=== PATIENT | female | born 1950 | race Caucasian/White ===

== ENCOUNTER 2017-02-25 19:48 | Observation (INO) ==
--- NOTE | 2017-02-25 19:58 | Emergency Department Note ---
Disposition Clinical Impression: Near syncope, Chest pain Disposition: Admitted As Inpatient Condition: Good Referrals: NONE,PCP [Non-Partnered Physician] - Forms: ED Satisfaction Letter Time of Disposition: 23:06 General Adult HPI - General Chief complaint: ED Syncope Stated complaint: Syncopal Episode Time Seen by Provider: 02/25/17 19:49 Nursing Notes Reviewed: Yes Vital Signs Reviewed: Yes - History of Present Illness HPI Narrative: Patient is a bleeding at the [facility] and had a near syncopal episode. She states that she had been sitting for long periods have her back started to hurt she got up to walk around. She did have associated diaphoresis with this. She denies any chest pain or shortness of breath. SHe denies any change in her vision or headaches. All systems ED: reviewed and negative except as stated. Constitutional: Denies: fever, chills ENT ED: Reports: other (Left jaw pain) Cardiovascular: Reports: other (Near-syncope). Denies: chest pain, syncope Respiratory: Denies: cough, dyspnea Gastrointestinal: Denies: abdominal pain, nausea, vomiting, diarrhea, hematemesis, melena, hematochezia Genitourinary: Denies: urgency, dysuria, frequency, hematuria Musculoskeletal: Denies: back pain, neck pain Integumentary: Denies: rash, abrasion Neurological: Denies: headache, weakness, numbness, paresthesias, abnormal gait Past Medical History - Past Medical History Attestation: Yes The following information was validated with the patient. Source: patient Physical Exam - General Limitations: no limitations General appearance: alert, in no apparent distress - Head Head exam: atraumatic, normocephalic, normal inspection - Eye Eye exam: Present: normal appearance, PERRL, EOMI. Absent: scleral icterus - ENT ENT exam: normal exam, normal oropharynx, mucous membranes moist - Neck Neck exam: Present: normal inspection, full ROM, trachea midline. Absent: tenderness - Chest Chest inspection: Present: normal inspection, symmetric chest wall rise. Absent : tenderness - Respiratory Respiratory exam: Present: normal lung sounds bilaterally. Absent: respiratory distress - Cardiovascular Cardiovascular exam: Present: regular rate, normal rhythm, normal heart sounds - Abdominal Exam Abdominal exam: Present: soft, Non-Tender, normal bowel sounds. Absent: tenderness, distention, guarding, rebound, rigidity, diminished bowel sounds, organomegaly - Extremities Exam Extremities exam: Present: normal inspection, full ROM, normal capillary refill. Absent: tenderness, pedal edema - Back Exam Back exam: Present: normal inspection, full ROM. Absent: tenderness - Neurological Exam Neurological exam: Present: alert, oriented X3 - Psychiatric Psychiatric exam: Present: normal affect, normal mood - Skin Skin exam: Present: warm, dry, intact, normal color. Absent: rash, cyanosis Course Course Narrative: Female patient presents emergency department complaining of a near syncopal event while she was ambulating to the [facility]. He states that she had been sitting down for extended period time and started having her back ache. She then got up and started walking around. After ambulating for a few minutes she got lightheaded and felt like she is going to pass out. She denies any change in her vision. She was able to sit down prior to the syncopal episode. She states that she got very clammy and had some left-sided jaw pain. She denies any chest pain or shortness of breath. She states that she has been eating appropriately today and states she had a BLT as well as a hotdog and romanian fries. Patient states that she became nauseated and had some episodes of diarrhea around the time of the event as well. Currently the patient is mentating appropriately. She is alert and oriented. Pupils are equal and reactive and she does not appear to be in any distress. We will scan patient's head get EKG and basic lab workup on patient. She is agreeable to this at this time. She does not appear to be in any distress currently while she is resting comfortably in bed. - Reevaluation(s) Reevaluation #1: We will admit patient to the hospital for her near syncope. She does have a hyperkalemia that we are treating with insulin and glucose. We will provide the patient with aspirin and morphine for her chest pain she is now having. She states this is to the left side of her chest. Patient does have an elevated d-dimer. However her kidney function is poor. We will admit patient for a VQ scan tomorrow. Vital Signs Temperature 97.8 F 02/25/17 19:49 Pulse Rate 61 02/25/17 19:49 Respiratory Rate 20 02/25/17 19:49 Blood Pressure 153/63 02/25/17 19:49 O2 Sat by Pulse Oximetry 97 02/25/17 19:49 Temperature 97.8 F 02/25/17 19:49 Pulse Rate 61 02/25/17 19:49 Respiratory Rate 20 02/25/17 19:49 Blood Pressure 153/63 02/25/17 19:49 O2 Sat by Pulse Oximetry 97 02/25/17 19:49 Oxygen Delivery Oxygen Delivery Room Air Medical Decision Making - Medical Records Medical records reviewed: Yes I reviewed the patient's medical records. - Lab Data Lab results reviewed: Yes I reviewed the patient's lab results. Result diagrams: 02/25/17 20:38 02/25/17 20:38 Lab Results 02/25/17 02/25/17 02/25/17 Range/Units 20:38 20:38 20:38 WBC 7.7 (4.3-11.1) K/mcL RBC 3.71 L (3.82-4.97) M/mcL Hgb 11.1 L (11.5-15.4) g/dL Hct 35.0 L (35.3-44.9) % MCV 94.3 (83.0-100.0) fL MCH 29.9 (28.0-33.3) pg MCHC 31.7 (31.6-35.5) g/dL RDW 13.8 (11.5-14.5) % Plt Count 209 (140-400) K/mcL MPV 10.2 (9.4-12.4) fL Immature Gran % 0.1 (0-4) % Seg Neutrophils % 76.9 % Lymphocytes % 13.3 % Monocytes % 7.2 % Eosinophils % 2.2 % Basophils % 0.3 % Neutrophils # 5.9 (1.6-8.9) K/mcL Lymphocytes # 1.0 (0.6-4.6) K/mcL Monocytes # 0.6 (0.0-1.3) K/mcL Eosinophils # 0.2 (0.0-0.6) K/mcL Basophils # 0.0 (0.0-0.2) K/mcL PT 12.9 H (9.4-12.1) Seconds INR 1.2 APTT 27.8 (26.0-36.0) Seconds D-Dimer 781 H (0-500) ng/mLFEU Sodium 139 (136-145) mEq/L Potassium 5.9 H (3.5-4.5) mEq/L Chloride 110 H (98-109) mEq/L Carbon Dioxide 22 (19-29) mEq/L BUN 40 H (7-20) mg/dL Creatinine 1.53 H (0.57-1.11) mg/dL Est GFR ( Amer) 41 L (> 60) Est GFR (Non-Af Amer) 34 L (> 60) BUN/Creatinine Ratio 26 (6-26) Glucose 195 H (70-99) mg/dL Calculated Osmolality 303 H (280-300) Lactic Acid (0.5-2.2) mmol/L Calcium 9.1 (8.6-10.8) mg/dL Total Bilirubin 0.3 (0.2-1.2) mg/dL AST 20 (5-34) Units/L ALT 16 (0-55) Units/L Alkaline Phosphatase 60 (38-126) Units/L Troponin I (0-0.03) ng/mL Serum Total Protein 6.9 (6.0-8.3) g/dL Albumin 3.3 L (3.5-5.0) g/dL Globulin 3.6 H (2.4-3.5) g/dL Albumin/Globulin Ratio 0.9 L (1.1-2.2) Urine Color (Yellow) Urine Clarity (Clear) Urine pH (5.0-8.0) pH Units Ur Specific [place] (1.010-1.025) Urine Protein (Neg-Trace) mg/dL Urine Glucose (UA) (Normal) mg/dL Urine Ketones (Negative) mg/dL Urine Blood (Negative) Urine Nitrite (Negative) Urine Bilirubin (Negative) Urine Urobilinogen (Normal) mg/dL Ur Leukocyte Esterase (Negative) Urine Microscopic RBC (0-3) per hpf Urine Microscopic WBC (0-3) per hpf Ur Squamous Epith Cells (None-Few) per lpf Urine Bacteria (None-Few) per hpf Hyaline Casts (None-Few) per lpf Ur Culture Indicated? (NO) 02/25/17 02/25/17 02/25/17 Range/Units 20:38 20:38 21:10 WBC (4.3-11.1) K/mcL RBC (3.82-4.97) M/mcL Hgb (11.5-15.4) g/dL Hct (35.3-44.9) % MCV (83.0-100.0) fL MCH (28.0-33.3) pg MCHC (31.6-35.5) g/dL RDW (11.5-14.5) % Plt Count (140-400) K/mcL MPV (9.4-12.4) fL Immature Gran % (0-4) % Seg Neutrophils % % Lymphocytes % % Monocytes % % Eosinophils % % Basophils % % Neutrophils # (1.6-8.9) K/mcL Lymphocytes # (0.6-4.6) K/mcL Monocytes # (0.0-1.3) K/mcL Eosinophils # (0.0-0.6) K/mcL Basophils # (0.0-0.2) K/mcL PT (9.4-12.1) Seconds INR APTT (26.0-36.0) Seconds D-Dimer (0-500) ng/mLFEU Sodium (136-145) mEq/L Potassium (3.5-4.5) mEq/L Chloride (98-109) mEq/L Carbon Dioxide (19-29) mEq/L BUN (7-20) mg/dL Creatinine (0.57-1.11) mg/dL Est GFR ( Amer) (> 60) Est GFR (Non-Af Amer) (> 60) BUN/Creatinine Ratio (6-26) Glucose (70-99) mg/dL Calculated Osmolality (280-300) Lactic Acid 0.7 (0.5-2.2) mmol/L Calcium (8.6-10.8) mg/dL Total Bilirubin (0.2-1.2) mg/dL AST (5-34) Units/L ALT (0-55) Units/L Alkaline Phosphatase (38-126) Units/L Troponin I 0.00 (0-0.03) ng/mL Serum Total Protein (6.0-8.3) g/dL Albumin (3.5-5.0) g/dL Globulin (2.4-3.5) g/dL Albumin/Globulin Ratio (1.1-2.2) Urine Color Yellow (Yellow) Urine Clarity Cloudy A (Clear) Urine pH 5.5 (5.0-8.0) pH Units Ur Specific [place] 1.026 H (1.010-1.025) Urine Protein 30 H (Neg-Trace) mg/dL Urine Glucose (UA) Normal (Normal) mg/dL Urine Ketones Trace H (Negative) mg/dL Urine Blood Negative (Negative) Urine Nitrite Negative (Negative) Urine Bilirubin Moderate H (Negative) Urine Urobilinogen Normal (Normal) mg/dL Ur Leukocyte Esterase Trace H (Negative) Urine Microscopic RBC 3-5 H (0-3) per hpf Urine Microscopic WBC 0-3 (0-3) per hpf Ur Squamous Epith Cells Many H (None-Few) per lpf Urine Bacteria None Seen (None-Few) per hpf Hyaline Casts Few (None-Few) per lpf Ur Culture Indicated? YES A (NO) - Radiology Data Radiology results reviewed: Yes I reviewed the patient's radiology results. Chest X-Ray 02/25/17 19:49 IMPRESSION: No acute cardiopulmonary process. D/ / Bud Heath MD / Bud Heath MD Interpreting Provider: Bud Heath MD Head CT 02/25/17 19:50 IMPRESSION: No acute intracranial abnormality. D/ / Ck Bradford MD / Ck Bradford MD Interpreting Provider: Ck Bradford MD - EKG Data EKG #1 EKG attestation: Yes I reviewed and interpreted this EKG. EKG results narrative: Normal sinus rhythm at a rate of 62. SC interval is 189. QRS duration is 86. QT is 400. QTC is 405. No signs of acute ischemia. No previous EKG to compare to. Attestation Statement - Attestation Attestation: I examined this patient and my medical decision-making was reviewed with the Resident Physician. I agree with the documented findings, disposition and treatment plan as described except to the extent set forth below. 66-year-old female with concern for near syncope. She does have a history of taking an GRACIE inhibitor. She has findings today of acute kidney injury as well as hyperkalemia. We did investigate possible causes including pulmonary embolism. She cannot have contrast as she has a KI. Plan to hydrate, admitted for possible VQ scan. He dimer is pending. Additionally we will obtain EKG and basic laboratory analyses. Plan to admit to hospital for further evaluation of syncope.
[2017-02-25 20:46] LABS: Basophils % 0.3 %; Eosinophils # 0.2 K/mcL (0.0-0.6); Eosinophils % 2.2 %; Hemoglobin 11.1 g/dL (11.5-15.4); Immature Granulocytes % 0.1 % (0-4); Lymphocytes % 13.3 %; Mean Corpuscular HGB Conc 31.7 g/dL (31.6-35.5); Mean Corpuscular Hemoglobin 29.9 pg (28.0-33.3); Mean Corpuscular Volume 94.3 fL (83.0-100.0); Mean Platelet Volume 10.2 fL (9.4-12.4); Monocytes # 0.6 K/mcL (0.0-1.3); Monocytes % 7.2 %; Neutrophils # 5.9 K/mcL (1.6-8.9); Platelet Count 209 K/mcL (140-400); Red Blood Count 3.71 M/mcL (3.82-4.97); Red Cell Distribution Width 13.8 % (11.5-14.5); Segmented Neutrophils % 76.9 %
[2017-02-25 20:51] LABS: INR 1.2; Prothrombin Time 12.9 Seconds (9.4-12.1)
[2017-02-25 20:54] LABS: Activated Partial Thrombo Time 27.8 Seconds (26.0-36.0)
[2017-02-25 21:01] LABS: Albumin 3.3 g/dL (3.5-5.0); Albumin/Globulin Ratio 0.9 (1.1-2.2); Bilirubin,Total 0.3 mg/dL (0.2-1.2); Calcium 9.1 mg/dL (8.6-10.8); Globulin 3.6 g/dL (2.4-3.5); Potassium 5.9 mEq/L (3.5-4.5); Total Protein 6.9 g/dL (6.0-8.3)
[2017-02-25 21:33] LABS: Bilirubin,Urine Moderate (Negative); Blood,Urine Negative (Negative); Clarity,Urine Cloudy (Clear); Color,Urine Yellow (Yellow); Glucose,Urine (UA) Normal (Normal); Ketones,Urine Trace mg/dL (Negative); Leukocyte Esterase,Urine Trace (Negative); Nitrite,Urine Negative (Negative); PH,Urine 5.5 pH Units (5.0-8.0); Protein,Urine 30 mg/dL (Neg-Trace); Specific Gravity,Urine 1.026 (1.010-1.025); Urobilinogen,Urine Normal (Normal)
[2017-02-25 21:36] LABS: Bacteria,Urine None Seen per hpf (None-Few); Hyaline Casts,Urine Few per lpf (None-Few); Squamous Epithelial Cell,Urine Many per lpf (None-Few); WBC,Urine 0-3 per hpf (0-3)
--- NOTE | 2017-02-25 22:17 | Emergency Department Note ---
START Narrative - START START: I examined this patient and my medical decision-making was reviewed with the Resident Physician. I agree with the documented findings, disposition and treatment plan as described except to the extent set forth below. In summary 66 -year-old female presenting with syncope. Ultimately found to have elevated d- dimer. She does have acute kidney injury and is on an GRACIE inhibitor. She does have a component of hyperkalemia. I would be concerned at this point to proceed with possible nephrogenic insult with IV contrast media. I would hydrate, admitted for possible VQ scan at the discretion of the hospitalist team.
[2017-02-25] MEDS ORDERED: 0.9 % Sodium Chloride 1,000 ML IVC SCH (22:30)
[2017-02-25] MEDS ORDERED: *HR* Morphine 2 MG/ML SYRINGE IVP ONE (22:30)
[2017-02-25] MEDS ORDERED: Aspirin 81 MG TAB.CHEW PO ONE (22:30)
[2017-02-25] MEDS ORDERED: *HR* Morphine 2 MG/ML SYRINGE IVP PRN (22:44)
[2017-02-25] MEDS ORDERED: Acetaminophen 325 MG TABLET PO PRN (22:44)
[2017-02-25] MEDS ORDERED: Naloxone 0.4 MG/ML INJ IVP PRN (22:44)
[2017-02-25] MEDS ORDERED: Ondansetron 4 MG/2 ML VIAL IVP PRN (22:44)
[2017-02-25] MEDS ORDERED: D5% in Water 1,000 ML IVC PRN (22:44)
[2017-02-25] MEDS ORDERED: Dextrose Gel 15 GM PO PRN ×2 (22:44)
[2017-02-25] MEDS ORDERED: *HR* Dextrose 50 % in Water (Syg) 50 ML SYRINGE IVP PRN (22:44)
[2017-02-25] MEDS ORDERED: *HR* Dextrose 50 % in Water (Syg) 50 ML SYRINGE IVP ONE (22:50)
[2017-02-25] MEDS ORDERED: Insulin Human Regular 10 UNIT in 0.9 % Sodium Chloride 10 ML IV ONE (22:50)
--- NOTE | 2017-02-25 22:53 | Internal Med History&Physical ---
Date of Encounter: 02/25/17 Time of Encounter: 22:51 Assessment and Plan (1) Near syncope Current visit: Yes Status: Acute Likely secondary to dehydration, possible orthostatic hypotension Check orthostatics, continue IV fluids, fall precautions Telemetry, echocardiogram Omeprazole for GI prophylaxis and Lovenox for DVT prophylaxis, the patient will be admitted for observation. Full code. Time spent on this admission 40 minutes (2) Elevated d-dimer Current visit: Yes Status: Acute Consider possible coronary emboli Start Lovenox, may discontinue if V/Q scan is negative (3) Dehydration Current visit: Yes Status: Acute Continue IV fluids Hold Lasix and hold lisinopril due to hyperkalemia (4) Acute renal failure Current visit: Yes Status: Acute Hold Lasix and lisinopril Continue fluids, continue doses of medications Qualifiers: Acute renal failure type: unspecified Qualified Code(s): N17.9 - Acute kidney failure, unspecified (5) Diabetes Current visit: Yes Status: Acute Decrease dose of Levemir and continue insulin sliding scale Qualifiers: Diabetes mellitus type: type 2 Diabetes mellitus complication status: without complication 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 Nathan is a 66 year old female with a past medical history of diabetes type 2 insulin-dependent, hypertension, chronic leg edema, rheumatoid arthritis, neuropathy came to the emergency room complaining of almost fainting had a fair earlier today. Patient felt lightheaded, clammy, she mentions that she has been sitting down for a prolonged period of time. She has been having diarrhea for low. Time on and off for the past year, felt nauseous today. The creatinine is 1.53 glucose 195 chest x-ray in CT scan of the head did not show any abnormalities. Potassium is 5.9, felt slightly short of breath and her date d-dimer was 781. ER requested admission on the possibility of dehydration and also pulmonary emboli. UA does not show infections. The patient has been taking her Lasix regularly. Blood pressure is 153/63, feels weak denies any other complaint Past Med Surg Social Fam HX - Past Medical History Medical history: COPD (Not oxygen dependent), diabetes (Insulin-dependent), hyperlipidemia, hypertension, other (Chronic leg edema, neuropathy, rheumatoid arthritis on hydroxychloroquine) Psychiatric history: depression - Past Surgical History Surgical History: appendectomy, other (Hysterectomy, right knee surgery and rotator cuff repair) - Social History Smoking Status: Never smoker Smokeless Tobacco Status: No Alcohol use: none Drug use: none - Additional Family History Additional family history: Father with metastatic prostate cancer and diabetes All Systems PM: A 10-system review of systems was performed and is negative for pertinent findings except as documented above in the HPI. Review of systems: No chest pain, no abdominal pain. Other systems out of the 10 reviewed were negative - Constitutional Vitals: Temp Pulse Resp BP Pulse Ox 97.8 F 61 18 153/63 97 02/25/17 19:49 02/25/17 19:49 02/25/17 22:35 02/25/17 22:35 02/25/17 19:49 General appearance: Present: A&O X 3, morbidly obese Exam: Denies allergies Says she takes Levemir 65 units twice a day, Humalog 15 units twice a day, sertraline, lisinopril, Lasix, gabapentin, tizanidine, Plaquenil, dose is to be confirmed - Head Head exam: Present: atraumatic, normocephalic - Eye Eye exam: Present: PERRL, conjuntiva pink, sclera anicteric Pupils: Present: PERRL Additional comments: Dry mucosa - Neck Neck exam general surgery: Present: supple, trachea midline. Absent: lymphadenopathy - Respiratory Respiratory exam: Present: decreased breath sounds, CTAB. Absent: accessory muscle use, rales, rhonchi, wheezes - Cardiovascular Cardiovascular exam: Present: RRR, +S1, +S2. Absent: diastolic murmur, gallop, rubs, systolic murmur - GI/Abdominal GI/Abdominal exam: Present: normal bowel sounds, soft, no peritoneal signs. Absent: distended, tenderness - Extremities Exam Extremities exam: Present: pedal edema (+1 nonpitting edema), warm, radial pulses palpable and symetrical. Absent: calf tenderness, cyanotic - Neurological Exam Neurological exam: Present: CN II-XII intact, oriented X3, no focal deficits. Absent: pronater drift, facial droop, speech deficit - Skin Skin exam: Present: dry, intact Internal Med - H&P Results - Labs CBC & Chem 7: 02/25/17 20:38 02/25/17 20:38
[2017-02-25] MEDS: Insulin LISPRO 300 UNITS/3 ML VIAL SQ SCH (23:35)
[2017-02-25] MEDS: 0.9 % Sodium Chloride 1,000 ML IVC SCH (23:52)
[2017-02-25] MEDS: *HR* Enoxaparin 150 MG/ML SYRINGE SQ SCH (23:52)
[2017-02-25] MEDS: Insulin DETEMIR 100 UNIT/ML X5UNITS SQ SCH (23:54)
[2017-02-26 04:16] LABS: Hematocrit 32.9 % (35.3-44.9); Hemoglobin 10.3 g/dL (11.5-15.4); Mean Corpuscular HGB Conc 31.3 g/dL (31.6-35.5); Mean Corpuscular Hemoglobin 29.7 pg (28.0-33.3); Mean Corpuscular Volume 94.8 fL (83.0-100.0); Mean Platelet Volume 10.5 fL (9.4-12.4); Platelet Count 189 K/mcL (140-400); Red Blood Count 3.47 M/mcL (3.82-4.97); Red Cell Distribution Width 13.8 % (11.5-14.5)
[2017-02-26 04:43] LABS: Calcium 8.5 mg/dL (8.6-10.8)
[2017-02-26 04:44] LABS: Potassium 5.9 mEq/L (3.5-4.5)
[2017-02-26] MEDS: *HR* Enoxaparin 150 MG/ML SYRINGE SQ SCH (05:56)
[2017-02-26] MEDS: Insulin LISPRO 300 UNITS/3 ML VIAL SQ SCH ×3 (08:00→17:19)
[2017-02-26] MEDS: Gabapentin 100 MG CAPSULE PO SCH ×3 (08:00→20:34)
[2017-02-26 09:44] LABS: Chol/HDL Ratio 3.3 (0-4.9)
[2017-02-26] MEDS: 0.9 % Sodium Chloride 1,000 ML IVC SCH (09:47)
[2017-02-26] MEDS: Insulin DETEMIR 100 UNIT/ML X5UNITS SQ SCH ×2 (09:48→20:34)
[2017-02-26] MEDS ORDERED: *HR* HYDROcodone/Acet 5/325 mg TABLET PO PRN ×2 (11:28→11:29)
--- NOTE | 2017-02-26 15:20 | Internal Med Progress Note ---
<Derrick Castillo - Last Filed: 02/26/17 15:15> Date of Encounter: 02/26/17 Time of Encounter: 15:15 - Assessment and plan (1) Near syncope Current Visit: Yes Status: Acute Assessment and plan: Orthostatic vitals negative. Etiology unclear at this time. possibilities include: vasovagal, dehydration, valvular dysfunction. V/Q scan negative for PE Plan: Pending echo results. continue IVF (2) Elevated d-dimer Current Visit: Yes Status: Acute Assessment and plan: D-Dimer 781 V/Q scan shows low probablility of pulmonary emboli (3) Hyperkalemia Current Visit: Yes Status: Acute Assessment and plan: potassium this morning 5.9 EKG shows sinus bradycardia, no T wave changes noted. Plan: patient given kayexalate awaiting results of repeat BMP. (4) Dehydration Current Visit: Yes Status: Acute Assessment and plan: continue IVF (5) Renal insufficiency Current Visit: Yes Status: Acute Assessment and plan: note Cr of 1.39, GFR 38. No prior values of GFR or Cr to compare May have component of CKD, especially in setting of DM. Plan: continue to hold lasix and lisinopril and monitor kidney function. (6) Diabetes Current Visit: Yes Status: Acute Assessment and plan: increased Levemir dose today due to high sugars. continue low dose sliding scale insulin with ACHS accuchecks. Qualifiers: Diabetes mellitus type: type 2 Diabetes mellitus complication status: without complication Diabetes mellitus shelter insulin use: with shelter use Qualified Code(s): E11.9 - Type 2 diabetes mellitus without complications ; Z79.4 - group home (current) use of insulin (7) Hypothyroidism Current Visit: Yes Status: Acute Assessment and plan: continue sythroid. will obtain TSH with morning labs. Qualifiers: Hypothyroidism type: unspecified Qualified Code(s): E03.9 - Hypothyroidism , unspecified (8) Rheumatoid arthritis Current Visit: Yes Status: Acute Assessment and plan: continue home medications. Qualifiers: Rheumatoid arthritis location: multiple sites Rheumatoid factor presence: unspecified presence Qualified Code(s): M06.9 - Rheumatoid arthritis, unspecified (9) DVT prophylaxis Current Visit: Yes Status: Acute Assessment and plan: D/C lovenox start heparin SQ - Subjective Interval history: 66 year old female evaluated at bedside. patient denies nausea, vomiting, diarrhea, fever, chills, shortness of breath. she complains of some mild lower substernal chest tenderness reproducible with pressure. she denies any further problems today. - Constitutional Vitals: Temp Pulse Resp BP Pulse Ox 97.7 F 67 16 142/76 92 02/26/17 11:18 02/26/17 11:18 02/26/17 11:18 02/26/17 11:18 02/26/17 11:18 General appearance: Present: A&O X 3, morbidly obese, pleasant, no acute distress, answers questions appropriately - Head Head exam: Present: atraumatic, normocephalic - Neck Neck exam general surgery: Present: supple, trachea midline - Respiratory Respiratory exam: Present: CTAB - Cardiovascular Cardiovascular exam: Present: RRR, +S1, +S3, systolic murmur (+2/6 systolic murmur heard best at left upper sternal border) - GI/Abdominal GI/Abdominal exam: Present: normal bowel sounds, soft. Absent: distended, tenderness - Extremities Exam Extremities exam: Absent: cyanotic, pedal edema, tenderness - Neurological Exam Neurological exam: Present: alert, oriented X3, no focal deficits - Psychiatric Psychiatric exam: Present: normal affect, normal mood - Skin Skin exam: Present: intact Internal Medicine: Result - Labs CBC & Chem 7: 02/26/17 03:55 02/26/17 03:55 Labs: Short CBC 02/26/17 Range/Units 03:55 WBC 6.6 (4.3-11.1) K/mcL Hgb 10.3 L (11.5-15.4) g/dL Hct 32.9 L (35.3-44.9) % Plt Count 189 (140-400) K/mcL [facility] 02/26/17 03:55 Sodium 141 Potassium 5.9 H Chloride 113 H Carbon Dioxide 23 BUN 42 H Creatinine 1.39 H Glucose 177 H Calcium 8.5 L - ABG Interpretation ABG results: PT/INR, D-dimer PT 12.9 Seconds (9.4-12.1) H 02/25/17 20:38 D-Dimer 781 ng/mLFEU (0-500) H 02/25/17 20:38 Consult Discharge Plan - Plan Referrals: Akbar Norwood MD [Primary Care Provider] - <Gerard Almodovar - Last Filed: 02/26/17 18:56> Date of Encounter: 02/26/17 - Assessment and plan (1) Dehydration Current Visit: Yes Status: Acute (2) Hyperkalemia Current Visit: Yes Status: Acute (3) Near syncope Current Visit: Yes Status: Acute (4) Acute renal failure Current Visit: Yes Status: Acute Qualifiers: Acute renal failure type: unspecified Qualified Code(s): N17.9 - Acute kidney failure, unspecified (5) Hypothyroidism Current Visit: Yes Status: Acute Qualifiers: Hypothyroidism type: unspecified Qualified Code(s): E03.9 - Hypothyroidism , unspecified (6) Diabetes Current Visit: Yes Status: Acute Qualifiers: Diabetes mellitus type: type 2 Diabetes mellitus complication status: without complication 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 shelter use Qualified Code(s): E11.9 - Type 2 diabetes mellitus without complications ; Z79.4 - group home (current) use of insulin (7) Elevated d-dimer Current Visit: Yes Status: Acute - Constitutional Vitals: Temp Pulse Resp BP Pulse Ox 99.3 F 67 16 172/84 94 02/26/17 17:14 02/26/17 17:14 02/26/17 17:14 02/26/17 17:14 02/26/17 17:14 Internal Medicine: Result - Labs CBC & Chem 7: 02/26/17 03:55 02/26/17 14:39 Labs: Short CBC 02/26/17 Range/Units 03:55 WBC 6.6 (4.3-11.1) K/mcL Hgb 10.3 L (11.5-15.4) g/dL Hct 32.9 L (35.3-44.9) % Plt Count 189 (140-400) K/mcL BMP 02/26/17 02/26/17 03:55 14:39 Sodium 141 140 Potassium 5.9 H 5.3 H Chloride 113 H 113 H Carbon Dioxide 23 20 BUN 42 H 37 H Creatinine 1.39 H 1.13 H Glucose 177 H 168 H Calcium 8.5 L 8.6 - ABG Interpretation ABG results: PT/INR, D-dimer PT 12.9 Seconds (9.4-12.1) H 02/25/17 20:38 D-Dimer 781 ng/mLFEU (0-500) H 02/25/17 20:38 - Attending Attestation I examined this patient and my medical decision-making was reviewed with the Resident Physician on 02/26/17. I agree with the documented findings, disposition and treatment plan as described except to the extent set forth below. Ms. Nathan is currently in observation for near syncopal episode. She is moderate to high risk due to potential for worsening neurologic status. Ms. Nathan feels OK today. She is awaiting testing. No fever or chills. No CP. Exam Alert. Comfortable Mucus membranes moist Heart reg No wheeze No edema Abd soft I/P 1. Near syncope 2. Hyperkalemia - Kayexalate 3. NICOLE Further diagnoses and plan as above.
--- NOTE | 2017-02-26 15:24 | Electrocardiograph Report ---
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
[2017-02-26 15:54] LABS: Calcium 8.6 mg/dL (8.6-10.8); Potassium 5.3 mEq/L (3.5-4.5)
--- NOTE | 2017-02-26 20:53 | Electrocardiograph Report ---
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
[2017-02-26] MEDS ORDERED: Insulin LISPRO 300 UNITS/3 ML VIAL SQ SCH (21:00)
[2017-02-26] MEDS: *HR* Heparin 5,000 UNIT/ML VIAL SQ SCH (21:53)
[2017-02-27] MEDS: 0.9 % Sodium Chloride 1,000 ML IVC SCH ×2 (02:01→07:59)
[2017-02-27 05:10] LABS: Basophils % 0.4 %; Eosinophils # 0.1 K/mcL (0.0-0.6); Eosinophils % 3.1 %; Hematocrit 30.4 % (35.3-44.9); Hemoglobin 9.5 g/dL (11.5-15.4); Lymphocytes # 1.7 K/mcL (0.6-4.6); Lymphocytes % 38.9 %; Mean Corpuscular HGB Conc 31.3 g/dL (31.6-35.5); Mean Corpuscular Hemoglobin 29.5 pg (28.0-33.3); Mean Corpuscular Volume 94.4 fL (83.0-100.0); Mean Platelet Volume 10.3 fL (9.4-12.4); Monocytes # 0.4 K/mcL (0.0-1.3); Monocytes % 9.6 %; Neutrophils # 2.1 K/mcL (1.6-8.9); Platelet Count 197 K/mcL (140-400); Red Blood Count 3.22 M/mcL (3.82-4.97); Red Cell Distribution Width 13.7 % (11.5-14.5)
[2017-02-27 05:20] LABS: BUN/Creatinine Ratio 37 (6-26); Blood Urea Nitrogen 31 mg/dL (7-20); Calcium 8.1 mg/dL (8.6-10.8); Carbon Dioxide 21 mEq/L (19-29); Chloride 114 mEq/L (98-109); Glucose 130 mg/dL (70-99); Osmolality,Calculated 298 (280-300); Potassium 4.3 mEq/L (3.5-4.5); Sodium 140 mEq/L (136-145); eGFR For African Americans > 60 (> 60); eGFR For Non-African Americans > 60 (> 60)
[2017-02-27 05:42] LABS: Thyroid Stimulating Hormone 0.386 mcIU/mL (0.350-4.840)
[2017-02-27] MEDS: *HR* Heparin 5,000 UNIT/ML VIAL SQ SCH (06:30)
[2017-02-27] MEDS: Gabapentin 100 MG CAPSULE PO SCH (07:58)
[2017-02-27] MEDS: Insulin DETEMIR 100 UNIT/ML X5UNITS SQ SCH (07:58)
[2017-02-27] MEDS: Insulin LISPRO 300 UNITS/3 ML VIAL SQ SCH ×2 (07:58→11:29)
--- NOTE | 2017-02-27 10:22 | Discharge Summary ---
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 termite insulin use: with exterminator termite use Qualified Code(s): E11.9 - Type 2 diabetes mellitus without complications ; 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 (7) Hypothyroidism Priority: Secondary Status: Acute Qualifiers: Hypothyroidism type: unspecified Qualified Code(s): E03.9 - Hypothyroidism , unspecified (8) Rheumatoid arthritis Priority: Secondary Status: Acute Qualifiers: Rheumatoid arthritis location: multiple sites Rheumatoid factor presence: unspecified presence Qualified Code(s): M06.9 - Rheumatoid arthritis, unspecified (9) DVT prophylaxis Priority: Secondary Status: Acute - Discharge Medications Home Medications: Gabapentin [Neurontin] 400 mg PO BID 02/25/17 [History] HYDROcodone/Acet 5/325 mg [Wister 5-325 mg] 1 tab PO Q6H PRN 02/25/17 [History] Insulin DETEMIR [Levemir] 65 unit SQ BID 02/25/17 [History] Insulin LISPRO [HumaLOG] 26 units SQ TID PRN 02/25/17 [History] Levothyroxine [Synthroid] 75 mcg PO 0630 02/25/17 [History] Omeprazole [PriLOSEC] 20 mg PO DAILY 02/25/17 [History] Sertraline [Zoloft] 100 mg PO DAILY 02/25/17 [History] Simvastatin [Zocor] 40 mg PO DAILY 02/25/17 [History] Tizanidine HCl [Zanaflex] 2 mg PO TID 02/25/17 [History] Hydroxychloroquine [Plaquenuil] 200 mg PO DAILY 02/26/17 [History] Allergies/Adverse Reactions: Allergies latex Allergy (Mild, Verified 02/25/17 23:06) Itching Procedures/tests Complete & Pending: Procedures Performed prior 72 hours Category Date Time Status NM pul vent and perfuse [NM] Routine Exams 02/25/17 13:45 Completed EKG [ECG 12 lead ECG] [ECG] Stat Y 02/26/17 08:59 Completed EV echocardiogram Routine Y 02/26/17 22:59 Completed Date of admission: 02/25/17 22:10 Primary care physician: Akbar Norowod MD - Patient Status Disposition: Home, Self-Care Condition: Good Functional capacity at discharge: independent ambulation Overall status at discharge: patient is progressing back to baseline - Discharge Instructions Follow Up With: Akbar Norwood MD [Primary Care Provider] - 03/01/17 1:10 pm (please follow up as schedule....) Additional Instructions: follow up with primary care doctor within one week of dsicharge, evaluate need for lasix and lisinopril in setting of NICOLE and hyperkalemia stop lisinopril and lasix until follow up with primary care doctor. take all medications as prescribed increase fluid intake please return to emergency department if you develop chest pain, shortness of breath, fever, chills, or episodes syncope BMP in 1 week - Diet and Activity Activity: increase activity as tolerated Diet: advance to your usual diet Hospital course: Ms. Nathan is a 66 year old female with pMHx of type 2 insulin dependent DM, HTN , chronic leg edema, RA, neuropathy. she came to [facility] on 02/25/17 with CC of near syncopal episode earlier that day. Patient felt lightheaded and clammy. She was admitted for further workup. CXR showed no acute process. Head CT showed no acute abnormality. Patient could not have CTA due to her elevated Cr. Her V/Q scan showed low probability for acute PE, mild lung base atalectasis. EKG showed sinus rhythm. Echo showed LVEF 60%, normal LV chamber size and function, mild concentric LVH, mild diastolic dysfunction, normal RV structure and function, no evidence of pulmonary HTN, no valvular dysfunction. Patient did have elevated Cr during admission which resolved with fluids. SHe also had hyperkalemia. Likely etiology from lasix and lisinopril, which were stopped. Her hyperkalemia was controlled with kayexalate, but patient needs eval outpatient to see if these meds should be continued. They were stopped during his hospital visit. Patients lipid panel was within normal limits. Her orthostatic vitals were negative. Her TSH was normal. The etiology of her near syncopal episodes are likely vasovagal in nature, may be component of dehydration as well. Patient remained stable throughout the course of her hospital stay, and was stable at discharge. Plan: follow up with primary care doctor within one week of dsicharge, evaluate need for lasix and lisinopril in setting of NICOLE and hyperkalemia stop lisinopril and lasix until follow up with primary care doctor. take all medications as prescribed increase fluid intake please return to emergency department if you develop chest pain, shortness of breath, fever, chills, or episodes syncope BMP in 1 week - Time Spent with Patient Total time spent providing and/or coordinating discharge services: - Constitutional Vitals: Temp Pulse Resp BP Pulse Ox 98.6 F 61 16 142/82 97 02/27/17 06:47 02/27/17 06:47 02/27/17 06:47 02/27/17 06:47 02/27/17 08:04 General appearance: Present: A&O X 3, morbidly obese, pleasant, no acute distress, answers questions appropriately - Head Head exam: Present: atraumatic, normocephalic - Neck Neck exam general surgery: Present: supple, trachea midline - Respiratory Respiratory exam: Present: CTAB - Cardiovascular Cardiovascular exam: Present: RRR, +S1, +S2, systolic murmur (+2/6 systolic murmur heard best at the left upper sternal border. ) - GI/Abdominal GI/Abdominal exam: Present: normal bowel sounds, soft. Absent: distended, tenderness - Extremities Exam Extremities exam: Absent: cyanotic, pedal edema - Neurological Exam Neurological exam: Present: alert, oriented X3, no focal deficits - Psychiatric Psychiatric exam: Present: normal affect, normal mood - Skin Skin exam: Present: intact <Pancho Monzon - Last Filed: 02/27/17 15:50> Date of Encounter: 02/27/17 Procedures/tests Complete & Pending: Procedures Performed prior 72 hours Category Date Time Status NM pul vent and perfuse [NM] Routine Exams 02/25/17 13:45 Completed EKG [ECG 12 lead ECG] [ECG] Stat Y 02/26/17 08:59 Completed EV echocardiogram Routine Y 02/26/17 22:59 Completed Date of admission: 02/25/17 22:10 Primary care physician: Akbar Norwood MD Hospital course: Ms. Nathan is a 66 year old female - Time Spent with Patient Total time spent providing and/or coordinating discharge services: Greater than 30 minutes - Constitutional Vitals: Temp Pulse Resp BP Pulse Ox 98.1 F 61 12 171/84 96 02/27/17 11:15 02/27/17 11:15 02/27/17 11:15 02/27/17 11:15 02/27/17 11:15 - Attending Attestation I examined this patient and my medical decision-making was reviewed with the Resident Physician on 02/27/17. I agree with the documented findings, disposition and treatment plan as described except to the extent set forth below. Seen and reviewed at bedside Sitting up in bed, no new complains, dressed up to go home 66 year old female with DM, HTN, chronic leg edema, RA, neuropathy admitted to observation for enar syncope Work up including CXR, ECHO, VQ scan, Head CT, showed no acute process. TSH was WNL, Orthostatics were negative. She however had NICOLE Her renal function has improved with IVF and holding her home doses of ACEI, Lasix She is clinically stable to be discharged home Encourage liberal fluid intake and hold ACEI/Lasix till PCP visit Rest of details as in resident physician's documentation
[2017-02-27 11:17] VITALS: BP 171/84
== END 2017-02-27 12:30 | disposition home or self-care (01) ==
LOC: EMEROO 19:48 → 2ANU 19:48
PROVIDERS: ADMIT Hospitalist; ATTEND Internal Medicine

== ENCOUNTER 2022-03-31 11:04 | Inpatient (IN) ==
[2022-03-31] MEDS ORDERED: Furosemide 40 MG/4 ML VIAL IVP ONE (11:58)
[2022-03-31] MEDS ORDERED: Ondansetron 4 MG/2 ML VIAL IVP ONE (11:58)
[2022-03-31] MEDS ORDERED: Nitroglycerin 0.4 MG TAB.SUBL SL STA (11:58)
[2022-03-31 12:05] LABS: Basophils % 0.5 %; Eosinophils # 0.1 K/mcL (0.0-0.6); Eosinophils % 0.6 %; Hematocrit 29.4 % (35.3-44.9); Immature Granulocytes % 0.5 % (0-4); Lymphocytes # 0.3 K/mcL (0.6-4.6); Lymphocytes % 4.3 %; Mean Corpuscular HGB Conc 30.6 g/dL (31.6-35.5); Mean Corpuscular Hemoglobin 29.4 pg (28.0-33.3); Mean Corpuscular Volume 96.1 fL (83.0-100.0); Mean Platelet Volume 9.2 fL (9.4-12.4); Monocytes # 0.8 K/mcL (0.0-1.3); Monocytes % 9.7 %; Neutrophils # 6.6 K/mcL (1.6-8.9); Platelet Count 277 K/mcL (140-400); Red Blood Count 3.06 M/mcL (3.82-4.97); Red Cell Distribution Width 14.4 % (11.5-14.5); Segmented Neutrophils % 84.4 %; White Blood Count 7.8 K/mcL (4.3-11.1)
[2022-03-31 12:24] LABS: BUN/Creatinine Ratio 22 (6-26); Blood Urea Nitrogen 37 mg/dL (8-23); Calcium 8.9 mg/dL (8.6-10.3); Carbon Dioxide 20 mEq/L (23-29); Chloride 109 mEq/L (98-107); Glucose 193 mg/dL (70-105); Osmolality,Calculated 302 (280-300); Potassium 4.6 mEq/L (3.5-5.1); Sodium 139 mEq/L (136-145); Troponin I < 0.03 ng/mL (< 0.04)
[2022-03-31] MEDS ORDERED: Aspirin 325 MG TABLET PO ONE (12:52)
[2022-03-31] MEDS ORDERED: Naloxone 0.4 MG/ML INJ IVP PRN (15:05)
[2022-03-31] MEDS ORDERED: Ondansetron ODT 4 MG TAB.RAPDIS SL PRN (16:00)
[2022-03-31] MEDS ORDERED: Ipratropium/Albuterol Neb 3 ML IH PRN (16:12)
[2022-03-31] MEDS ORDERED: *HR* HYDROcodone/Acet 5/325 mg TABLET PO PRN (16:12)
[2022-03-31] MEDS ORDERED: D5% in Water 1,000 ML IVC PRN (16:26)
[2022-03-31] MEDS ORDERED: Dextrose Gel 15 GM/37.5 ML TUBE PO PRN ×2 (16:26)
[2022-03-31] MEDS ORDERED: *HR* Dextrose 50 % in Water (Syg) 50 ML SYRINGE IVP PRN (16:26)
[2022-03-31 17:32] LABS: Sodium, Urine 103.8 mEq/L
[2022-03-31] MEDS ORDERED: Furosemide 20 MG/2 ML VIAL IVP ONE (18:00)
[2022-03-31] MEDS ORDERED: Nitroglycerin 1 INCH/GM PACKET ONE (18:11)
[2022-03-31] MEDS ORDERED: Nitroglycerin 1 INCH/GM PACKET TP ONE (18:15)
[2022-03-31] MEDS: carvediloL 6.25 MG TABLET PO SCH (20:36)
[2022-03-31] MEDS: Melatonin 3 MG TABLET PO PRN (20:37)
[2022-03-31] MEDS: cloNIDine HCL 0.1 MG TABLET PO SCH ×2 (20:38→23:19)
[2022-03-31] MEDS: hydrALAZINE 25 MG TABLET PO SCH (20:38)
[2022-03-31] MEDS: Insulin LISPRO 300 UNITS/3 ML VIAL SUBQ SCH ×2 (20:39→23:47)
[2022-03-31] MEDS ORDERED: Gabapentin 400 MG CAPSULE PO SCH (21:00)
[2022-03-31 21:06] LABS: Magnesium 1.6 mg/dL (1.6-2.6)
[2022-03-31 21:10] LABS: Troponin I 0.07 ng/mL (< 0.04)
[2022-03-31] MEDS: Insulin DETEMIR 100 UNIT/ML X5UNITS SUBQ SCH (22:45)
[2022-03-31] MEDS: Isosorbide MONOnitrate (24 HR) 30 MG TAB.ER.24H PO SCH (23:47)
[2022-03-31] MEDS: *HR* Heparin 5,000 UNIT/ML VIAL SQ SCH (23:47)
[2022-04-01] MEDS: Insulin LISPRO 300 UNITS/3 ML VIAL SUBQ SCH ×4 (04:24→21:27)
[2022-04-01 04:37] LABS: Hematocrit 27.3 % (35.3-44.9); Hemoglobin 8.5 g/dL (11.5-15.4); Mean Corpuscular HGB Conc 31.1 g/dL (31.6-35.5); Mean Corpuscular Hemoglobin 29.7 pg (28.0-33.3); Mean Corpuscular Volume 95.5 fL (83.0-100.0); Mean Platelet Volume 9.2 fL (9.4-12.4); Platelet Count 219 K/mcL (140-400); Red Blood Count 2.86 M/mcL (3.82-4.97); Red Cell Distribution Width 14.5 % (11.5-14.5); White Blood Count 5.2 K/mcL (4.3-11.1)
[2022-04-01 04:57] LABS: Calcium 8.6 mg/dL (8.6-10.3); Potassium 4.1 mEq/L (3.5-5.1)
[2022-04-01 05:02] LABS: Troponin I 0.09 ng/mL (< 0.04)
[2022-04-01] MEDS: *HR* Heparin 5,000 UNIT/ML VIAL SQ SCH ×3 (05:34→21:26)
[2022-04-01] MEDS: amLODIPine 5 MG TABLET PO SCH (08:28)
[2022-04-01] MEDS: Isosorbide MONOnitrate (24 HR) 30 MG TAB.ER.24H PO SCH (08:28)
[2022-04-01] MEDS: cloNIDine HCL 0.1 MG TABLET PO SCH ×3 (08:28→21:26)
[2022-04-01] MEDS: hydrALAZINE 25 MG TABLET PO SCH ×3 (08:29→16:03)
[2022-04-01] MEDS: carvediloL 6.25 MG TABLET PO SCH (08:29)
[2022-04-01] MEDS: Aspirin Enteric Coated 81 MG Tablet PO SCH (08:29)
[2022-04-01] MEDS: Acetaminophen 325 MG TABLET PO PRN ×3 (08:30→21:25)
[2022-04-01] MEDS: Insulin DETEMIR 100 UNIT/ML X5UNITS SUBQ SCH ×2 (08:30→21:26)
[2022-04-01] MEDS: Furosemide 40 MG/4 ML VIAL IVP SCH ×2 (10:45→17:13)
[2022-04-01 12:15] LABS: Adenovirus Not Detected (Not Detect); Bordetella Pertussis Not Detected (Not Detect); Chlamydophila pneumoniae Not Detected (Not Detect); Coronavirus 229E Not Detected (Not Detect); Coronavirus HKU1 Not Detected (Not Detect); Coronavirus NL63 Not Detected (Not Detect); Coronavirus OC43 Not Detected (Not Detect); Human Metapneumovirus Not Detected (Not Detect); Human Rhinovirus/Enterovirus Not Detected (Not Detect); Influenza A Subtype 2009 H1 Not Detected (Not Detect); Influenza B Not Detected (Not Detect); Mycoplasma pneumoniae Not Detected (Not Detect); Parainfluenza Virus 1 Not Detected (Not Detect); Parainfluenza Virus 2 Not Detected (Not Detect); Parainfluenza Virus 3 Not Detected (Not Detect); Parainfluenza Virus 4 Not Detected (Not Detect); Respiratory Syncytial Virus Not Detected (Not Detect)
[2022-04-01 12:17] LABS: SARS-CoV-2 DETECTED (Not Detect)
[2022-04-01] MEDS: *HR* HYDROcodone/Acet 5/325 mg TABLET PO PRN ×2 (12:36→21:25)
[2022-04-02 02:28] LABS: Hematocrit 26.5 % (35.3-44.9); Hemoglobin 8.2 g/dL (11.5-15.4); Mean Corpuscular HGB Conc 30.9 g/dL (31.6-35.5); Mean Corpuscular Hemoglobin 29.2 pg (28.0-33.3); Mean Corpuscular Volume 94.3 fL (83.0-100.0); Mean Platelet Volume 9.4 fL (9.4-12.4); Platelet Count 199 K/mcL (140-400); Red Blood Count 2.81 M/mcL (3.82-4.97); Red Cell Distribution Width 13.8 % (11.5-14.5); White Blood Count 5.2 K/mcL (4.3-11.1)
[2022-04-02 02:42] LABS: Albumin 3.1 g/dL (3.5-5.7); Bilirubin,Total 0.3 mg/dL (0.3-1.0); Calcium 8.1 mg/dL (8.6-10.3); Magnesium 1.6 mg/dL (1.6-2.6); Total Protein 6.1 g/dL (6.4-8.9)
[2022-04-02] MEDS: Insulin LISPRO 300 UNITS/3 ML VIAL SUBQ SCH ×4 (09:18→20:58)
[2022-04-02] MEDS: Aspirin Enteric Coated 81 MG Tablet PO SCH (09:20)
[2022-04-02] MEDS: amLODIPine 5 MG TABLET PO SCH (09:20)
[2022-04-02] MEDS: cloNIDine HCL 0.1 MG TABLET PO SCH ×3 (09:20→20:42)
[2022-04-02] MEDS: hydrALAZINE 25 MG TABLET PO SCH ×3 (09:21→16:55)
[2022-04-02] MEDS: *HR* HYDROcodone/Acet 5/325 mg TABLET PO PRN ×2 (09:21→21:53)
[2022-04-02] MEDS: Isosorbide MONOnitrate (24 HR) 30 MG TAB.ER.24H PO SCH (09:22)
[2022-04-02] MEDS: Insulin DETEMIR 100 UNIT/ML X5UNITS SUBQ SCH ×2 (09:22→20:59)
[2022-04-02] MEDS: Furosemide 40 MG/4 ML VIAL IVP SCH ×2 (09:52→17:36)
[2022-04-02] MEDS: *HR* Heparin 5,000 UNIT/ML VIAL SQ SCH ×3 (09:52→20:59)
[2022-04-02] MEDS: Acetaminophen 325 MG TABLET PO PRN (20:59)
[2022-04-03 03:38] LABS: Hemoglobin 8.5 g/dL (11.5-15.4); Mean Corpuscular HGB Conc 30.4 g/dL (31.6-35.5); Mean Corpuscular Hemoglobin 28.7 pg (28.0-33.3); Mean Corpuscular Volume 94.6 fL (83.0-100.0); Mean Platelet Volume 9.9 fL (9.4-12.4); Platelet Count 239 K/mcL (140-400); Red Blood Count 2.96 M/mcL (3.82-4.97); Red Cell Distribution Width 13.8 % (11.5-14.5); White Blood Count 6.4 K/mcL (4.3-11.1)
[2022-04-03 04:10] LABS: Calcium 8.4 mg/dL (8.6-10.3); Potassium 3.9 mEq/L (3.5-5.1)
[2022-04-03] MEDS: *HR* Heparin 5,000 UNIT/ML VIAL SQ SCH ×2 (05:43→14:02)
[2022-04-03] MEDS: Acetaminophen 325 MG TABLET PO PRN ×2 (05:44→14:19)
[2022-04-03] MEDS: Insulin LISPRO 300 UNITS/3 ML VIAL SUBQ SCH ×4 (07:50→22:16)
[2022-04-03] MEDS: Insulin DETEMIR 100 UNIT/ML X5UNITS SUBQ SCH ×2 (07:52→22:15)
[2022-04-03] MEDS: amLODIPine 5 MG TABLET PO SCH (07:53)
[2022-04-03] MEDS: cloNIDine HCL 0.1 MG TABLET PO SCH ×3 (07:53→22:15)
[2022-04-03] MEDS: Isosorbide MONOnitrate (24 HR) 30 MG TAB.ER.24H PO SCH (07:53)
[2022-04-03] MEDS: Furosemide 40 MG/4 ML VIAL IVP SCH ×2 (07:54→16:42)
[2022-04-03] MEDS: hydrALAZINE 25 MG TABLET PO SCH ×3 (07:54→16:43)
[2022-04-03] MEDS: Aspirin Enteric Coated 81 MG Tablet PO SCH (07:54)
[2022-04-03 09:05] LABS: ABG Base Excess -3 mEq/L (-2 to 3); ABG Chloride 109 mEq/L (98-107); ABG Glucose 321 mg/dL (60-95); ABG HCO3 21 mEq/L (21-27); ABG Ionized Calcium 1.13 mmol/L (1.15-1.35); ABG Oxygen Saturation 93 % (95-98); ABG PCO2 37 mmHg (35-45); ABG PH 7.37 pH Units (7.32-7.45); ABG PO2 66 mmHg (85-104); ABG TCO2 23 mEq/L (20-26); Blood Gas Pressure Support 12 cm H2O
[2022-04-03] MEDS ORDERED: Iopamidol - 370 500 ML MLS IVP ONE (11:15)
[2022-04-03] MEDS: carvediloL 6.25 MG TABLET PO SCH (16:42)
[2022-04-03] MEDS ORDERED: *HR* Enoxaparin 100 MG/ML SYRINGE SQ SCH (21:00)
[2022-04-03] MEDS: Melatonin 3 MG TABLET PO PRN (22:15)
[2022-04-03] MEDS: *HR* HYDROcodone/Acet 5/325 mg TABLET PO PRN (22:32)
[2022-04-04 05:52] LABS: Basophils % 0.1 %; Hematocrit 28.5 % (35.3-44.9); Immature Granulocytes % 0.3 % (0-4); Lymphocytes # 1.3 K/mcL (0.6-4.6); Lymphocytes % 18.7 %; Mean Corpuscular HGB Conc 31.6 g/dL (31.6-35.5); Mean Corpuscular Volume 91.9 fL (83.0-100.0); Mean Platelet Volume 9.3 fL (9.4-12.4); Monocytes # 0.7 K/mcL (0.0-1.3); Monocytes % 10.2 %; Neutrophils # 4.8 K/mcL (1.6-8.9); Platelet Count 244 K/mcL (140-400); Red Cell Distribution Width 13.9 % (11.5-14.5); Segmented Neutrophils % 70.7 %; White Blood Count 6.8 K/mcL (4.3-11.1)
[2022-04-04 06:09] LABS: Potassium 3.8 mEq/L (3.5-5.1)
[2022-04-04] MEDS: Isosorbide MONOnitrate (24 HR) 30 MG TAB.ER.24H PO SCH (09:37)
[2022-04-04] MEDS: amLODIPine 5 MG TABLET PO SCH (09:37)
[2022-04-04] MEDS: Aspirin Enteric Coated 81 MG Tablet PO SCH (09:38)
[2022-04-04] MEDS: cloNIDine HCL 0.1 MG TABLET PO SCH ×2 (09:38→17:12)
[2022-04-04] MEDS: carvediloL 6.25 MG TABLET PO SCH ×2 (09:38→17:10)
[2022-04-04] MEDS: Insulin DETEMIR 100 UNIT/ML X5UNITS SUBQ SCH (09:39)
[2022-04-04] MEDS: Furosemide 40 MG/4 ML VIAL IVP SCH ×2 (09:39→17:10)
[2022-04-04] MEDS: hydrALAZINE 25 MG TABLET PO SCH ×3 (09:41→17:10)
[2022-04-04] MEDS: Insulin LISPRO 300 UNITS/3 ML VIAL SUBQ SCH ×3 (09:47→17:12)
[2022-04-04 09:50] VITALS: BP 162/78; PULSE 70; TEMP 98.6; O2SAT 95
== END 2022-04-04 18:30 | disposition home health service (06) | DRG 177 ==
LOC: EMEROOARM 11:04 → 3ANU 11:04 → SUATTDRO 17:28 → 2NENU 18:40
PROVIDERS: ADMIT Student in an Organized Health Care Education/Training Program; ATTEND Internal Medicine